=== PATIENT | female | born 1990 | race Caucasian/White ===

== ENCOUNTER 2021-11-12 20:18 | Emergency (ER) | payer MEDICARE, OTHER ==
[~2021-11-12 20:18] MED LIST: ZOFRAN4 MG PO
[2021-11-12 23:16] LABS: BASOPHIL 0.9 % (0-2); EOSINOPHIL 4.3 % (0-5); HCT 41.4 % (37.0-47.0); LYMPHOCYTE 47.2 % (15-48); MCH 29.5 pg (25.0-31.0); MCHC 33.8 g/dL (32.0-36.0); MCV 87.2 fL (78.0-100.0); MONOCYTE 7.1 % (0-12); NRBC 0; PLT 289 K/uL (150-400); RBC 4.75 M/uL (4.20-5.40); RDW 12.6 % (11.5-14.0); WBC 12.7 K/uL (4.0-10.5)
[2021-11-12 23:22] LABS: NEUTROPHIL 40.4 % (41-80)
[2021-11-12 23:39] LABS: ALBUMIN 3.5 g/dL (3.4-5.0); BILIRUBIN - TOTAL 0.3 mg/dL (0.2-1.0); BUN/CREAT RATIO (CALC) 8.3 RATIO; CREATININE 1.08 mg/dL (0.51-0.95); GLOBULIN (CALCULATION) 3.8 g/dL; MAGNESIUM 1.9 mg/dL (1.8-2.4); POTASSIUM 3.8 mmol/L (3.5-5.1); TOTAL PROTEIN 7.3 g/dL (6.4-8.2)
[2021-11-13 00:23] LABS: CORONAVIRUS 2019 SARS-COV-2 NEGATIVE (NEGATIVE); INFLUENZA A NAA NEGATIVE (NEGATIVE)
== END 2021-11-13 04:10 | disposition home or self-care (01) ==
LOC: FER 20:18
PROVIDERS: Nurse Practitioner Family
DX: R00.2 Palpitations (principal); Z88.2 Allergy status to sulfonamides; Z88.8 Allergy status to other drugs, medicaments and biological substances; Z20.822 Contact with and (suspected) exposure to COVID-19
CPT/HCPCS: 36415; 71045; 71275; 80053; 83735; 85025; 85379; 93005; J7030; Q9967; U0002